=== PATIENT | female | born 1965 | race Two or more races ===

== ENCOUNTER 2019-04-05 07:00 | Inpatient (IN) | payer OTHER ==
[~2019-04-05] VITALS: Ht 162.6 cm; Wt 110.2 kg
[2020-01-09] MEDS ORDERED: METFORMIN HCL500 M1 ORAL (14:38)
[2020-01-09] MEDS ORDERED: GLIPIZIDE5 MG ORAL (14:39)
[2020-01-09] MEDS ORDERED: LOVASTATIN20 MG ORAL (14:39)
[2020-01-09] MEDS ORDERED: SERTRALINE HCL100 MG PO (14:39)
[2020-01-09] MEDS ORDERED: steglatro PO (14:43)
[2020-01-09] MEDS ORDERED: ALBUTEROL SULF8.5 GM INH (14:43)
[2020-01-10] VITALS (11 sets, daily range): BP systolic 105–140; BP diastolic 70–83
[2020-01-10] MEDS ORDERED: Rocuronium Bromide 50mg/5ml Inj IV ONE (06:31)
[2020-01-10] MEDS ORDERED: LR 1000ml 1,000 ML IVLG SCH ×2 (06:40→09:55)
[2020-01-10] MEDS ORDERED: Midazolam 2mg/2ml Inj IVP PRN ×2 (06:45→10:00)
[2020-01-10] MEDS ORDERED: Gelfoam Size TOPIC ONE (06:45)
[2020-01-10] MEDS ORDERED: LORazepam Inj 2mg/ml 1ml IV PRN ×2 (06:45→10:00)
[2020-01-10] MEDS ORDERED: Labetalol 5mg/ml 20ml vial IV PRN ×2 (06:45→10:00)
[2020-01-10] MEDS ORDERED: fentaNYL 100 mcg/2 mL IV PRN ×2 (06:45→10:00)
[2020-01-10] MEDS ORDERED: Thrombin 5000 units TOPIC ONE (06:45)
[2020-01-10] MEDS ORDERED: Bacitracin 50000 Units Vial ONE (06:45)
[2020-01-10] MEDS ORDERED: oxyCODONE HCL/Acetaminophen 5/325mg ORAL PRN ×2 (06:45→10:00)
[2020-01-10] MEDS ORDERED: Hydromorphone 0.5mg/0.5ml inj IVP PRN ×2 (06:45→10:00)
[2020-01-10] MEDS ORDERED: Ketorolac 30mg Inj IV PRN ×4 (06:45→10:00)
[2020-01-10] MEDS ORDERED: Metoclopramide 10mg/2ml Inj IVP PRN ×3 (06:45→12:30)
[2020-01-10] MEDS ORDERED: Meperidine 25mg/0.5ml Inj (FOR RIGORS ONLY) IV PRN ×2 (06:45→10:00)
[2020-01-10] MEDS ORDERED: HYDROcodone/Acetamin 5/325 tab ORAL PRN ×3 (06:45→13:00)
[2020-01-10] MEDS ORDERED: HYDROcodone/Acetamin 7.5/325 tab ORAL PRN ×4 (06:45→13:00)
[2020-01-10] MEDS ORDERED: Atropine Sulfate 0.4mg/ml inj IVP PRN ×2 (06:45→10:00)
[2020-01-10] MEDS ORDERED: DiphenhydrAMINE 50mg/ml Inj IVP PRN ×2 (06:45→10:00)
[2020-01-10] MEDS ORDERED: Lidocaine 1% Plain 30 ml INJ ONE (06:46)
--- NOTE | 2020-01-10 06:48 | Anethesia Preoperative Eval ---
Anesthesia Pre-op PMH/ROS General Date of Evaluation: Jan 10, 2020 Time of Evaluation: 07:01 Anesthesiologist: Kerwin ASA Score: ASA 3 Mallampati Score Class I : Soft palate, uvula, fauces, pillars visible Class II: Soft palate, uvula, fauces visible Class III: Soft palate, base of uvula visible Class IV: Only hard plate visible Mallampati Classification: Class II Surgeon: Sushant Diagnosis: Neck Pain Surgical Procedure: ADR C3-4, ACDF C5-6 Anesthesia History: none Social History: smoking Family History: no anesthesia problems Allergies: Coded Allergies: No Known Allergies (Unverified , 01/10/20) Medications: see eMAR Patient NPO?: Yes NPO Date: Jan 09, 2020 NPO Time: 2199 Past Medical History Cardiovascular: Reports: HTN, other - HL Pulmonary: Reports: COPD, other - Bronchitis Neurologic/Psychiatric: Reports: depression/anxiety Endocrine: Reports: DM Other: obesity - Morbid BMI 43 PSxH Narrative: C/S, Dental Sx Anesthesia Pre-op Phys. Exam Physician Exam Last Vital Signs Date Time Temp Pulse Resp B/P (MAP) Pulse Ox O2 Delivery O2 Flow Rate FiO2 01/10/20 06:01 Room Air 01/10/20 05:56 97.6 85 18 140/82 (101) 96 Constitutional: NAD Neurologic: CN 2-12 intact Cardiovascular: RRR Respiratory: CTA Gastrointestinal: S/NT/ND Airway Exam Mallampati Score: Class II MO: full ROM: limited Teeth: missing Dentures: upper, lower Anesthesia Pre-op A/P Risk Assessment & Plan Assessment: ASA 3 Plan: GA, SED,GlideScope Go Status Change Before Surgery: No Pre-Antibiotics Dru grams Ancef, Clindamycin 600 mg IV Given Within 1 Hr of Incision: Yes Time Given: 07:16 Jhoan Melendez MD Jan 10, 2020 06:48
[2020-01-10] MEDS ORDERED: Sodium Chloride 10ml vial INJ ONE (06:53)
[2020-01-10] MEDS ORDERED: Lidocaine 1% MPF 10mg/ml 5ml ONE (06:53)
[2020-01-10] MEDS ORDERED: Labetalol 5mg/ml 20ml vial IV ONE (07:00)
[2020-01-10] MEDS ORDERED: Propofol 1,000mg/ 100ml btl IV ONE (07:00)
[2020-01-10] MEDS ORDERED: ceFAZolin sod 2 GM in D5W 110 ML IVPB ONE (07:00)
[2020-01-10] MEDS ORDERED: LR 1000ml ONE (07:00)
[2020-01-10] MEDS ORDERED: Sterile Water Irrig 1000ml IRRIG ONE (07:00)
[2020-01-10] MEDS ORDERED: NS Irrig 1000ml ONE (07:00)
--- NOTE | 2020-01-10 07:22 | Pre-Procedure Note/Attestation ---
Pre-Procedure Note/Attestation Complete Prior to Procedure Planned Procedure: not applicable Procedure Narrative: Anterior cervical discectomy and fusion of c34 and C56 Indications for Procedure Pre-Operative Diagnosis: herniation of C34 and 56 Attestation I attest that I discussed the nature of the procedure; its benefits; risks and complications; and alternatives (and the risks and benefits of such alternatives ), prior to the procedure, with the patient (or the patient's legal sales development representative). I attest that, if there was a reasonable possibility of needing a blood transfusion, the patient (or the patient's legal sales development representative) was given the [facility] standardized written summary, pursuant to the [place] Blood Safety Act ([place] Health and Safety Code # 1645, as amended). I attest that I re-evaluated the patient just prior to the surgery and that there has been no change in the patient's H&P, except as documented below: Isiah Canchola MD Jan 10, 2020 07:22
--- NOTE | 2020-01-10 07:23 | Brief Operative Note ---
Immediate Post Operative Note Operative Note Chief Complaint: neck pain and radiculopathy Pre-op Diagnosis: herniation of C34 and 56 Procedure: Anterior cervical discectomy and fusion of c34 and C56 Post-op Diagnosis: same as pre-op Findings: consistent w/pre-op dx studies Surgeon: Sushant Ob Nurse: Audi Leija Anesthesiologist: Nora Anesthesia: general Specimen: none Complications: none Condition: stable Fluids: ivf Estimated Blood Loss: minimal Drains: none Implant(s) used?: Yes - nuvasive interlock c sz 6x2 screws 13mm x 6 Isiah Canchola MD Jan 10, 2020 07:23
[2020-01-10] MEDS ORDERED: Acetaminophen (Non formulary) 100 ML IV ONE ×2 (08:30→10:00)
[2020-01-10] MEDS ORDERED: Docusate 100mg cap ORAL SCH ×2 (09:00→21:00)
[2020-01-10] MEDS ORDERED: Neostigmine 1mg/ml 10ml Inj ONE (09:04)
[2020-01-10] MEDS ORDERED: Glycopyrrolate 0.2mg/ml 1ml Vial ONE ×2 (09:04→09:24)
[2020-01-10] MEDS ORDERED: fentaNYL 100 mcg/2 mL IV ONE (09:31)
--- NOTE | 2020-01-10 09:50 | Immediate Post-Op Evaluation ---
Immediate Post-Op Evalulation Immediate Post-Op Evalulation Procedure: ADR C3-4, ACDF C5-6 Date of Evaluation: Jan 10, 2020 Time of Evaluation: 10:04 IV Fluids: 1000 LR Blood Products: 0 Estimated Blood Loss: 75 Urinary Output: 300 Blood Pressure Systolic: 105 Blood Pressure Diastolic: 70 Pulse Rate: 70 Respiratory Rate: 16 O2 Sat by Pulse Oximetry: 92 Temperature (Fahrenheit): 97.4 Pain Score (1-10): 2 Nausea: No Vomiting: No Complications 0 Patient Status: awake, reacts, patent, extubated, none Hydration Status: adequate Dru Gram Ancef, Clindamycin 600 mg IV Given Within 1 Hr of Incision: Yes Time Given: 07:16 Jhoan Melendez MD Jan 10, 2020 09:50
[2020-01-10] MEDS ORDERED: DiphenhydrAMINE 25mg Tab ORAL PRN (11:45)
[2020-01-10] MEDS ORDERED: Albuterol/Ipratropium 3ml neb HHN PRN (12:30)
[2020-01-10] MEDS ORDERED: HYDROmorphone 1mg/ml Carpuject IVP PRN (12:30)
[2020-01-10] MEDS ORDERED: Milk of Magnesia 30ml Ud ORAL PRN (12:30)
[2020-01-10] MEDS ORDERED: Morphine Sulfate 4mg/ml Inj (IV USE ONLY) IV PRN ×2 (12:30→13:00)
--- NOTE | 2020-01-10 12:36 | Diagnostic Imaging Report ---
Indication: Intraoperative imaging COMPARISON: None FINDINGS: Multiple fluoroscopic images were obtained intraoperatively. Fluoroscopic time 23.6 seconds. Localization of the C3-4 and C5-6 demonstrated on initial views. Subsequent anterior fixation screws for interbody fusion placed at these 2 levels. IMPRESSION: Intraoperative imaging as described above
[2020-01-10] MEDS: Dexamethasone 4mg/ml vial IVP SCH ×2 (12:49→17:26)
[2020-01-10] MEDS ORDERED: Naloxone 0.4mg/ml Inj IVP PRN (13:00)
[2020-01-10] MEDS ORDERED: Morphine Sulfate 2mg/ml Inj(IV/IM USE ONLY) IV PRN (13:00)
[2020-01-10] MEDS ORDERED: Chloraseptic Spray 20mL Bottle ORAL PRN (13:30)
[2020-01-10] MEDS ORDERED: NS w/KCl 20mEq 1000ml 1,000 ML IV SCH (13:30)
[2020-01-10] MEDS ORDERED: Clindamycin 600mg 50 ML IV SCH (14:00)
[2020-01-10] MEDS: NovoLOG Insulin Flexpen SUBQ SCH ×2 (14:31→17:24)
--- NOTE | 2020-01-10 14:46 | History and Physical ---
History of Present Illness General Date patient seen: Jan 10, 2020 Time patient seen: 14:38 Reason for Hospitalization: Post-op monitoring Present Illness HPI 54 year old woman with morbid obesity, COPD (current smoker), HTN, HLD, NIDDM who underwent anterior cervical discectomy and fusion of C3/4 and C5/6 No apparent post-op complications noted, pain appears well controlled. Spoke with spine surgeon to discuss the case. 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 Resuscitation status Full Code Advanced Directive on File Review of Systems Constitutional: Denies: chills, fever Respiratory: Denies: cough Cardiovascular: Denies: chest pain, edema, palpitations Gastrointestinal: Denies: abdominal pain, constipation, diarrhea, nausea Musculoskeletal: Denies: back pain Skin: Denies: rash Neurological: Denies: headache Physical Exam General Appearance: no apparent distress, alert HEENT: atraumatic, anicteric Neck: normal alignment, supple Respiratory/Chest: lungs clear, normal breath sounds, no respiratory distress, no accessory muscle use Cardiovascular/Chest: normal rate, regular rhythm Abdomen: non tender, soft Extremities: non-tender, normal inspection 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 grossly normal, alert, oriented x 3 Last 24 Hour Vital Signs Date Time Temp Pulse Resp B/P (MAP) Pulse Ox O2 Delivery O2 Flow Rate FiO2 01/10/20 11:39 98.7 76 22 122/77 (92) 93 01/10/20 11:35 Room Air 01/10/20 10:44 97.4 74 23 121/74 92 Nasal Cannula 3 01/10/20 10:30 79 24 128/75 92 Nasal Cannula 3 01/10/20 10:20 78 18 120/73 92 Simple Mask 6 01/10/20 10:10 79 22 131/78 94 Simple Mask 6 01/10/20 10:00 80 25 132/83 94 Simple Mask 6 01/10/20 09:55 76 23 121/71 95 Simple Mask 6 01/10/20 09:50 73 28 111/70 93 Simple Mask 6 01/10/20 09:50 70 16 92 01/10/20 09:46 97.4 70 22 105/70 92 Simple Mask 6 01/10/20 06:01 Room Air 01/10/20 05:56 97.6 85 18 140/82 (101) 96 Intake and Output 01/09/20 01/10/20 19:00 07:00 # Voids 1 Height (Feet): 5 Height (Inches): 4.00 Weight (Pounds): 243 Medications Current Medications Medications (Trade) Dose Ordered Sig/Natalia Route PRN Reason Start Time Stop Time Status Last Admin Dose Admin Acetaminophen (Tylenol) 650 mg Q4H PRN ORAL headache or temp>101 01/10/20 12:30 02/09/20 12:29 Acetaminophen/ Hydrocodone Bitart ([place] 5/325) 1 tab Q3H PRN ORAL pain score 1-3 01/10/20 13:00 01/17/20 12:59 Acetaminophen/ Hydrocodone Bitart ([place] 7.5/325) 1 tab Q3H PRN ORAL pain score 4-6 01/10/20 13:00 01/17/20 12:59 Acetaminophen/ Hydrocodone Bitart ([place] 7.5/325) 2 tab Q3H PRN ORAL pain scale 7-10 01/10/20 13:00 01/17/20 12:59 Albuterol/ Ipratropium (Albuterol/ Ipratropium) 3 ml Q4H PRN HHN Shortness of Breath 01/10/20 12:30 01/15/20 12:29 Carisoprodol (Soma) 350 mg TIDPRN PRN ORAL SPASM 01/10/20 12:30 02/09/20 12:29 Cefazolin Sodium 1 gm/Dextrose 55 ml @ 110 mls/hr Q8H IV 01/10/20 15:00 01/11/20 07:29 01/10/20 14:30 Cetylpyridinium Chloride (Cepacol) 1 lozg EVERY 2 HOURS PRN LEVON To Patient Comfort 01/10/20 12:30 02/09/20 12:29 Clindamycin/ Sodium Chloride 50 ml @ 50 mls/hr Q6H IV 01/10/20 14:00 01/17/20 13:59 01/10/20 14:31 Dexamethasone Sodium Phosphate (Decadron 4mg/ml vial) 4 mg Q6HR IVP 01/10/20 12:30 01/11/20 06:01 01/10/20 12:49 Dextrose (Dextrose 50%) 25 ml Q30M PRN IV Hypoglycemia 01/10/20 12:30 02/09/20 12:29 Dextrose (Dextrose 50%) 50 ml Q30M PRN IV Hypoglycemia 01/10/20 12:30 02/09/20 12:29 Diphenhydramine HCl (Benadryl) 25 mg Q6H PRN ORAL Itching/Pruritis 01/10/20 11:45 02/09/20 11:44 Docusate Sodium (Colace) 100 mg EVERY 12 HOURS ORAL 01/10/20 21:00 02/09/20 20:59 Hydromorphone HCl (Dilaudid) 1 mg Q2H PRN IVP Breakthrough Pain 01/10/20 12:30 01/17/20 12:29 Insulin Aspart (NovoLOG) BEFORE MEALS AND HS SUBQ 01/10/20 13:30 02/09/20 13:29 01/10/20 14:31 Magnesium Hydroxide (Mom) 30 ml QIDPRN PRN ORAL Constipation 01/10/20 12:30 02/09/20 12:29 Metoclopramide HCl (Reglan) 10 mg Q6H PRN IVP Nausea & Vomiting 01/10/20 12:30 02/09/20 12:29 Morphine Sulfate (Morphine Sulfate) 2 mg Q4H PRN IV Mild Pain (Pain Scale 1-3) 01/10/20 13:00 01/17/20 12:59 01/10/20 12:18 Morphine Sulfate (Morphine Sulfate) 4 mg Q3H PRN IV Severe Pain (Pain Scale 7-10) 01/10/20 12:30 01/17/20 12:29 Morphine Sulfate (Morphine Sulfate) 4 mg Q4H PRN IV Moderate Pain (Pain Scale 4-6) 01/10/20 13:00 01/17/20 12:59 Naloxone HCl (Narcan) 0.1 mg PRN PRN IVP RR<12/min, pt unarousable 01/10/20 13:00 02/09/20 12:59 Ondansetron HCl (Zofran) 4 mg Q6H PRN IVP Nausea & Vomiting 01/10/20 12:30 02/09/20 12:29 Phenol/Menthol (Chloraseptic) 1 spray Q3H PRN ORAL To Patient Comfort 01/10/20 13:30 02/09/20 13:29 01/10/20 14:29 Potassium Chloride/Sodium Chloride 1,000 ml @ 100 mls/hr Q10H IV 01/10/20 13:30 02/09/20 13:29 01/10/20 13:52 Temazepam (Restoril) 15 mg HSPRN PRN ORAL Insomnia 01/10/20 21:00 01/17/20 20:59 Assessment/Plan Assessment/Plan: 54 year old woman with morbid obesity, COPD (current smoker), HTN, HLD, NIDDM who underwent anterior cervical discectomy and fusion of C3/4 and C5/6 #S/p ACD & F of C3/4 and C5/6 -admit to medicine postop -routine post-op care -IV Ancef -Pain control -Bowel regimen -PT/OT #COPD, not in acute exacerbation #Current smoker -Duoneb prn -smoking cessation advised #Morbid obesity #NIDDM -ISS #HTN #HLD -patient unsure of home meds -will monitor pressures Jaime Downing MD Jan 10, 2020 14:46
--- NOTE | 2020-01-10 14:54 | Discharge Summary ---
Discharge Summary Hospital Course Date of Admission Jan 10, 2020 at 05:15 Date of Discharge 01/10/20 Admitting Diagnosis Cervical disc herniation S/p ACD-F HPI Erendira Vaughan is a 54 year old female who was admitted on Jan 10, 2020 at 05 :15 for Herniated Nucleus Pulposus, Pain Procedures ACD F C3/4 C5/6 Hospital Course 54 year old woman with morbid obesity, COPD (current smoker), HTN, HLD, NIDDM who underwent anterior cervical discectomy and fusion of C3/4 and C5/6, admitted for post-op monitoring, She did well after surgery, seen by PT and cleared to go home by both PT and surgery. Will be on [place] [facility] as outpatient, to follow up with Dr. Canchola for post-op check. #S/p ACD & F of C3/4 and C5/6 #COPD, not in acute exacerbation #Current smoker #Morbid obesity #NIDDM #HTN #HLD Discharge Discharge Vital Signs Last Vital Signs Date Time Temp Pulse Resp B/P (MAP) Pulse Ox O2 Delivery O2 Flow Rate FiO2 01/10/20 11:39 98.7 76 22 122/77 (92) 93 01/10/20 11:35 Room Air 01/10/20 10:44 3 Discharge Disposition Patient was discharged to home Discharge Diagnoses: (1) HNP (herniated nucleus pulposus), cervical Jaime Downing MD Jan 10, 2020 14:54
[2020-01-10] MEDS ORDERED: ceFAZolin sod 1 GM in D5W 55 ML IV SCH (15:00)
--- NOTE | 2020-01-10 15:31 | 48 Hour Post Anesthesia Eval ---
Post Anesthesia Evaluation Procedure: ADR C3-4, ACDF C5-6 Date of Evaluation: Jan 10, 2020 Time of Evaluation: 15:31 Blood Pressure Systolic: 122 0: 77 Pulse Rate: 57 Respiratory Rate: 14 Temperature (Fahrenheit): 98 O2 Sat by Pulse Oximetry: 98 Airway: patent Nausea: No Vomiting: No Pain Intensity: 5 Hydration Status: adequate Mental Status/LOC: patient returned to baseline Post-Anesthesia Complications: none Follow-up care needed: N/A Rupali Lauren CRNA Jan 10, 2020 15:31
[2020-01-10] MEDS ORDERED: NORCO 10-325 T1 EACH ORAL (17:02)
[2020-01-10] MEDS ORDERED: CARISOPRODOL350 MG ORAL (17:05)
--- NOTE | 2020-01-10 17:15 | Operative Note - Dictated ---
DATE OF OPERATION: 01/10/2020 SURGEON: Isiah Canchola M.D., Orthopaedic Spine Surgeon. ROTOR CASTING MACHINE SETUP OPERATOR: Audi Vásquez Physician Supervisor [employer]izing. PREOPERATIVE DIAGNOSES: 1. Intractable neck pain. 2. Radiculopathy. 3. Herniation, C3-C4 and C5-C6. 4. Neural foraminal stenosis, C3-C4 and C5-C6. 5. Stenosis. POSTOPERATIVE DIAGNOSES: 1. Intractable neck pain. 2. Radiculopathy. 3. Herniation, C3-C4 and C5-C6. 4. Neural foraminal stenosis, C3-C4 and C5-C6. 5. Stenosis. PROCEDURE PERFORMED: 1. Anterior cervical discectomy and fusion of C3-C4 NuVasive Interlock Size 6 with 1 mL of Osteocel allograft and three screws of 13 mm length. 2. Anterior cervical discectomy and fusion of C5-C6 NuVasive Interlock-C Size 6 with 1 mL of Osteocel allograft bone and three screws of 13 mm length. 3. Use of intraoperative microscope. 4. Motor evoked potential monitoring. 5. Somatosensory evoked potential monitoring. 6. Supervision and interpretation of fluoroscopy. COMPLICATIONS: None. ANESTHESIA: General. ESTIMATED BLOOD LOSS: Less than 100 mL. INDICATIONS FOR SURGERY: This patient is a 54-year-old female, who has a history of intractable neck pain, radiculopathy, herniation, C3-C4 and C5-C6, neural foraminal stenosis, C3-C4 and C5-C6, and stenosis. We tried a course of conservative management but despite this course there was still a significant component of persistent, recalcitrant neck pain and arm pain. The MRI demonstrated significant neural foraminal compromise secondary to disc herniations at C3-C4 and C5-C6. We had a long discussion with Erendira regarding the risks and benefits of surgery. Our discussion included but was not limited to nonoperative management, chiropractic management, another epidural steroid injection as well definitive management in the form of surgery. We recommended an anterior cervical discectomy and fusion of C3-C4 and C56 as final definitive management. We reviewed the risks and benefits of surgery with the patient. Our discussion included a comprehensive review of the clinical issues and the nature of the clinical decision. We reviewed the alternatives, including doing nothing. The patient elected to proceed accordingly with anterior cervical discectomy and fusion of C3-C4 and C56. We had a long discussion regarding the risks, alternatives and benefits of surgery. Our description of the risks included a discussion in person as well as a signed consent which detailed all pertinent risks from the procedure itself. Briefly, our discussion included but was not limited to infection, bleeding, pseudarthrosis, spinal cord injury, neurovascular injury, dural tear, CSF leak, neuropathy, paralysis, permanent weakness/drop foot/drop arm, paresthesias, blindness, palsy and weakness. The patient understood there may be a need for a revision surgery or additional procedures. Approach-related complications including dysphonia, dysphagia, blindness, permanent vocal cord and neural injury, hematoma, swallowing and breathing difficulty. Medical complications were reviewed including liver, kidney, shock, cardiopulmonary failure, anesthesia complications including , swelling, damage to the musculature, larynx/voice injury or loss, esophagus/throat, trachea, blood vessels and muscles/muscular sprain and lungs/pneumothorax during this surgical procedure; injury to deeper structures may be temporary or permanent. After this review of risks, the patient understood these and elected to proceed. A written and verbal consent was given. We discussed the pros and cons of all the alternatives. We discussed the uncertainties associated with the decision. Afterwards I assessed the patient's understanding and explored their preferences. All questions were answered and no guarantees were given. Medical clearance was obtained prior to surgery. INTRAOPERATIVE FINDINGS: C3-C4; after removal of the majority of the disc, I noticed a tear in the posterior longitudinal ligament, which was almost vertical on the left side. This was probed with a Microsect-1B and after dissection through the tearing of PLL, I noticed a large fragment of the herniated disc, which was posterior to the tear and encroaching on the neural foramina and spinal cord posteriorly. This was carefully resected with the combination of Kerrison 1 and Kerrison 2 rongeurs until complete decompression of the spinal cord, thecal sac, and neural foramina was performed bilaterally. There was severe pressure on the left side. C5-C6; after removal of the majority of the disc, I noticed a tear on the left side of the posterior longitudinal ligament. This tear was approximately 10 degrees cephalad to caudad. After mobilization with the Microsect-1B and 2B, I noticed a large disc herniation, which was encroaching on the left side of neural foraminal on the left side. This was carefully resected with the combination of Kerrison 1 and Kerrison 2 rongeurs. After complete and thorough resection of the nuclear fragments and decompression of the neural foramina on the left side. After decompression to the right side, which also has some decrease of stenosis as well throughout the neural foramina. After complete decompression of the spinal cord and thecal sac was performed, there was no longer any pressure on the neural elements. I noticed at C3-C4 and C5-C6, there were no bone spurs anteriorly. The disc itself was not desiccated or dehydrated. The disc itself at both levels was still somewhat spongy, not calcified or crumbled. DESCRIPTION OF PROCEDURE: Under the benefit of general endotracheal anesthesia and with the assistance of the entire operative team, the patient was moved from the rmiami onto the operative table in the supine position. The head was secured and carefully positioned appropriately. Bilateral arms were secured with GelPads and foam and all bony prominences were padded. For the bilateral lower extremities SCD and MODESTO hose were placed for DVT prophylaxis. A surgical timeout was called which corroborated our planned procedure of anterior cervical discectomy and fusion of C3-C4 and C56. Preoperative antibiotics were administered within 30 minutes of the incision for antibiotic prophylaxis. Using lateral fluoroscopic radiography, the operative levels were delineated. Next the wound was prepped and draped with Chlorhexidine and sterile drapes. An incision was based on lateral fluoroscopy and we centered our incision at the C3-C4 and C5-C6 interspace and next using a standard Savage-Champion anterior based approach the incision was taken down through the skin and subcutaneous tissues until the vertebral bodies and their corresponding disc spaces were visualized. A needle was placed into the interspace to confirm placement of the operative interspace and we performed the remainder of procedure under microscopic visualization. Next, using a bipolar and Bovie cautery to ensure meticulous hemostasis, the longus colli was mobilized bilaterally and retractors were placed deep to the longus colli bilaterally to address retraction. Next we turned our attention to the radical anterior discectomy. This was initially performed at C3-C4. First by using a 15 blade scalpel followed by narrow pituitaries and a Microsect-5B curette was used to denude the endplate of all cartilaginous tissue. Next using a [employer] Darian AM8 drillbit the partial vertebrectomy was performed in a [id number] and layer by layer fashion, and ultimately the posterior uncinate joints bilaterally and posterior osteophytic lips and margins causing central and lateral impingement were carefully denuded until visualization of the posterior longitudinal ligament was possible. An endplate preparation was performed in the exact same fashion using an intervertebral lead accountant, sequential distraction was obtained throughout the disc space. We saw a tear/rent in the PLL and this was carefully mobilized and dissected using a Microsect-1B curette until we visualized a broad-based disc herniation with compression of the spinal cord as well as neural foramina left sided. This neural foraminal compression was carefully resected using a Kerrison-1 and Kerrison-2 rongeurs until complete decompression of the spinal cord was visualized and complete decompression of the neural foramina and nerve root therein as well as the axilla and lateral margin of the nerve root was visualized and subsequently completely decompressed. The family was notified at one hour intervals throughout the procedure to provide for consistent updates. Next we turned our attention to the radical anterior discectomy. This was initially performed at C5-C6. First by using a 15 blade scalpel followed by narrow pituitaries and a Microsect-5B curette was used to denude the endplate of all cartilaginous tissue. Next using a [employer] Darian AM8 drillbit the partial vertebrectomy was performed in a [id number] and layer by layer fashion, and ultimately the posterior uncinate joints bilaterally and posterior osteophytic lips and margins causing central and lateral impingement were carefully denuded until visualization of the posterior longitudinal ligament was possible. An endplate preparation was performed in the exact same fashion using an intervertebral lead accountant, sequential distraction was obtained throughout the disc space. We saw a tear/rent in the PLL and this was carefully mobilized and dissected using a Microsect-1B curette until we visualized a broad-based disc herniation with compression of the spinal cord as well as neural foramina left sided. This neural foraminal compression was carefully resected using a Kerrison-1 and Kerrison-2 rongeurs until complete decompression of the spinal cord was visualized and complete decompression of the neural foramina and nerve root therein as well as the axilla and lateral margin of the nerve root was visualized and subsequently completely decompressed. The family was notified at one hour intervals throughout the procedure to provide for consistent updates. We next turned our attention towards trialing our implant within the disc space at C3-C4. We initially tried size 5 and afterwards size 6 trial from the NuVasive system at C3-C4 level, which appeared to be appropriate under AP and lateral fluoroscopy as well as in terms of its height, depth, width, and lack of toggle. The PEEK (polyetheretherketone) interbody cages were then both packed with allograft bone from Osteocel and local autograft bone matrix. Next, these were then carefully advanced and secured into their intervertebral spaces under direct visualization and with supervision of AP and lateral fluoroscopic views. This was then performed at the next level, C5-C6. We initially tried size 5 and size 5 trial from the NuVasive system at C5-C6 level, which appeared to be appropriate under AP and lateral fluoroscopy as well as in terms of its height, depth, width, and lack of toggle. The PEEK (polyetheretherketone) interbody cages were then both packed with allograft bone from Osteocel and local autograft bone matrix. Next, these were then carefully advanced and secured into their intervertebral spaces under direct visualization and with supervision of AP and lateral fluoroscopic views. We next turned our attention towards plating at C3-C4. Plating was performed with NuVasive Interlock plating system. A total of three screws, size 13 mm in length were inserted and confirmed under AP and lateral fluoroscopy and confirmed to be in excellent position. This was then performed at the next level, C5-C6. Plating was performed with NuVasive Interlock-C plating system. A total of three screws, size 13 mm in length were inserted and confirmed under AP and lateral fluoroscopy and confirmed to be in excellent position. After a finger sweep we confirmed removal of all sponges. The retractor was removed and we next turned our attention to meticulous hemostasis with FloSeal and bipolar cautery. After the sponge and needle count was again found to be correct with our second count, we next turned our attention to closure. The wound was again copiously irrigated with antibiotic impregnated saline. Closure consisted of 4-0 clear nylon for the platysma, and 6-0 clear nylon for the superficial skin. Final skin closure and dressings consisted of Dermabond. Prior to final closure, a final radiograph was obtained which demonstrated the hardware is intact with excellent position throughout. The patient tolerated the procedure well. The patient was carefully extubated after the conclusion of surgery. We discussed the findings of the surgery with the family upon completion of the case. At this point the patient was transferred to the spine floor for further observation. Isiah Canchola M.D. DR: RUFINA JOB#: [id number] CC: [email or web address]
== END 2020-01-10 18:00 | disposition home or self-care (01) | DRG 472 ==
LOC: SDSOVERFLO 01-10 05:15 → 3E 01-10 12:03
PROC: 0RB30ZZ Excision of Cervical Vertebral Disc, Open Approach (ICD-10-PCS; principal; 2020-01-10 07:00)
PROC: 0RG20A0 Fusion of 2 or more Cervical Vertebral Joints with Interbody Fusion Device, Anterior Approach, Anterior Column, Open Approach (ICD-10-PCS; principal; 2020-01-10 07:00)
DX: M50.11 Cervical disc disorder with radiculopathy, high cervical region (principal); Z68.41 Body mass index [BMI] 40.0-44.9, adult; E11.9 Type 2 diabetes mellitus without complications; I10 Essential (primary) hypertension; F17.200 Nicotine dependence, unspecified, uncomplicated; E78.5 Hyperlipidemia, unspecified; E66.01 Morbid (severe) obesity due to excess calories; J44.9 Chronic obstructive pulmonary disease, unspecified; Z79.84 Long term (current) use of oral hypoglycemic drugs; M48.02 Spinal stenosis, cervical region
CPT/HCPCS: 36415; 72040; 76000; 82962; 86850; 86900; 86901; 87081; 94003; 94150; J1815; J2405; J2710; S0077